=== PATIENT | female | born 1995 | race Caucasian/White ===

== ENCOUNTER 2017-03-01 15:57 | Emergency (ER) | payer MEDICAID ==
[~2017-03-01] VITALS: Ht 160 cm; Wt 99.0 kg
[~2017-03-01 15:57] MED LIST: AUGM875T PO; IBUP800T23 PO; PNVPAK PO
[2017-03-01 15:59] VITALS: BP 152/63; PULSE 86; RESP 14; TEMP 98.7; O2SAT 97
[2017-03-01] MEDS ORDERED: [UNRECOGNIZED DRUG - OTHER] PO (16:46)
--- NOTE | 2017-03-01 17:12 | PD ---
HPI Chief Complaint: Complaint Time Seen by Provider: 17:03 Travel History International Travel<30 days: No Contact w/Intl Traveler<30days: No Traveled to known affect area: No History of Present Illness HPI 21-year-old female presents to the emergency Department with complaint of dysuria 5 days. She also reports urgency and frequency. Denies hematuria. Currently on her menses. Denies vaginal discharge, odor, itch, lesions. Denies fever, chills, nausea, vomiting, abdominal pain. Denies low back pain. Has not taken any medications or tried any treatments to alleviate her symptoms. No known relieving or aggravating factors. Allergies to coconuts. Currently takes control. Denies significant past medical history. No other modifying factors or associated signs and symptoms. PFSH Past Medical History ADHD: No Cancer: No Cardiovascular Problems: No Diabetes: No Psychiatric: Yes (DEPRESSION) Migraines: No Seizures: No Thyroid Disease: No Ulcer: No ?: Not : 1 Para: 1 Past Surgical History Other Surgery: No Social History Alcohol Use: No Tobacco Use: No Substance Use: No Allergies-Medications (Allergen,Severity, Reaction): Coded Allergies: Coconut (Unverified Allergy, Intermediate, THROAT ITCHES, 03/01/17) Reported Meds & Prescriptions Reported Meds & Active Scripts Active Reported [jovelin] 1 Tab PO DAILY Review of Systems Except as stated in HPI: all other systems reviewed are Neg Physical Exam Narrative GENERAL: Well-nourished, well-developed -[place]onese female patient, in no acute distress; afebrile, nontoxic-appearing SKIN: Warm and dry. No rash. HEAD: Atraumatic. Normocephalic. EYES: Pupils equal and round. No scleral icterus. No injection or drainage. ENT: Mucosa pink and moist. NECK: Trachea midline. CARDIOVASCULAR: Regular rate and rhythm. No murmur appreciated. RESPIRATORY: No accessory muscle use. Clear to auscultation. Breath sounds equal bilaterally. GASTROINTESTINAL: Abdomen soft, non-tender, nondistended. Hepatic and splenic margins not palpable. Bowel sounds are active 4 quadrants. Bladder nontender and nondistended. MUSCULOSKELETAL: No obvious deformities. No clubbing. No cyanosis. No edema. BACK: No CVA tenderness NEUROLOGICAL: Awake and alert. Oriented 3. No obvious cranial nerve deficits. Motor grossly within normal limits. Normal speech. Moves all extremities. 5/5 strength to all extremities. PSYCHIATRIC: Appropriate mood and affect; insight and judgment normal. Data Data Last Documented VS Vital Signs Date Time Temp Pulse Resp B/P Pulse Ox O2 Delivery O2 Flow Rate FiO2 03/01/17 15:59 98.7 86 14 152/63 97 Orders Urinalysis - C+S If Indicated (03/01/17 16:10) Urine Culture (03/01/17 16:15) Labs Laboratory Tests Test 03/01/17 16:15 Urine Color YELLOW Urine Turbidity HAZY Urine pH 6.5 Urine Specific [place] 1.023 Urine Protein 30 mg/dL Urine Glucose (UA) NEG mg/dL Urine Ketones NEG mg/dL Urine Occult Blood LARGE Urine Nitrite NEG Urine Bilirubin NEG Urine Urobilinogen LESS THAN 2.0 MG/DL Urine Leukocyte Esterase SMALL Urine RBC /hpf Urine WBC 22 /hpf Urine Squamous Epithelial 5 /hpf Cells Urine Amorphous Sediment RARE Urine Bacteria FEW /hpf Urine Mucus FEW /lpf Microscopic Urinalysis Comment CULTURE INDICATED MDM Medical Decision Making Medical Screen Exam Complete: Yes Emergency Medical Condition: Yes Medical Record Reviewed: Yes Differential Diagnosis Cystitis, UTI, pyelonephritis Narrative Course 21-year-old female with dysuria 5 days. Patient is afebrile and nontoxic- appearing. Denies vaginal symptoms. Denies fever, chills, nausea, vomiting. Urinalysis ordered. 1720: Urinalysis was signs of infection. Keflex and Pyridium prescribed for home. Patient verbalizes understanding and agreement with treatment plan. Patient is medically cleared and stable for discharge. Discussed reasons to return to the emergency department. Instructed patient to follow up with primary care provider. Patient agrees with treatment plan. The patients vital signs are stable and the patient is stable for outpatient follow-up and treatment. Patient discharged home, stable and in no acute distress. Diagnosis Primary Impression: UTI (urinary tract infection) Qualified Code: N39.0 - Urinary tract infection without hematuria, site unspecified Referrals: Primary Care Physician Patient Instructions: General Instructions, Urinary Tract Infection in Women ( ED) Departure Forms: School Release, Return to School Date: Mar 02, 2017 Tests/Procedures Additional Instructions: Take antibiotics as prescribed and complete full course Take Pyridium for bladder spasms: Pyridium will turn your urine bright orange Drink plenty of fluids Maintain good personal hygiene Follow-up with primary care provider Return to the emergency department immediately with worsening of symptoms Med/Other Pt SpecificInfo: Prescription(s) given Scripts Phenazopyridine (Pyridium)100 Mg [id number] Mg PO Q8H PRN (DYSURIA) #10 TAB Ref 0 Prov:Melina Rae 03/01/17 Cephalexin (Keflex)500 Mg [id number] Mg PO Q12H 7 Days Ref 0 Prov:Melina Rae 03/01/17 Disposition: 01 DISCHARGE HOME Condition: Stable Melina Rae Mar 01, 2017 17:12
[2017-03-01 17:16] LABS: BACTERIA, URINE FEW /hpf; BLOOD, URINE LARGE (NEG); COMMENT (UR) CULTURE INDICATED; CULTURE IF INDICATED CULTURE INDICATED; GLUCOSE,URINE NEG (NEG); KETONE, URINE NEG (NEG); MUCUS URINE FEW /lpf (OCC); NITRITE,URINE NEG (NEG); PH, URINE 6.5 (5.0-8.5); SQUAMOUS EPITHELIAL CELL URINE 5 /hpf (0-5); URINE COLOR YELLOW (YELLW/STRAW)
[2017-03-01] MEDS ORDERED: CEPH-460 PO (17:21)
[2017-03-01] MEDS ORDERED: PHEN0.4T PO (17:21)
== END 2017-03-01 17:36 | disposition home or self-care (01) ==
LOC: NEPK 15:57
DX: N39.0 Urinary tract infection, site not specified (principal); B96.20 Unspecified Escherichia coli [E. coli] as the cause of diseases classified elsewhere
CPT/HCPCS: 81001; 87077; 87086; 87186; 99283

== ENCOUNTER 2017-03-31 13:51 | Emergency (ER) | payer MEDICAID ==
[~2017-03-31] VITALS: Ht 160 cm; Wt 100.0 kg
[~2017-03-31 13:51] MED LIST changes: -AUGM875T PO; +CEPH-460 PO; -IBUP800T23 PO; +PHEN0.4T PO; -PNVPAK PO; +[UNRECOGNIZED DRUG - OTHER] PO
[2017-03-31 13:52] VITALS: BP 130/73; PULSE 96; RESP 18; TEMP 98.8; O2SAT 97
--- NOTE | 2017-03-31 14:06 | PD ---
Physical Exam Date Seen by Provider: March 31, 2017 Time Seen by Provider: 14:04 Narrative 21 year old female presents to the emergency department for evaluation of pelvic pain, low back pain, vaginal d/c. She states she was recently treated for Chlamydia. She states her told her he was treated as well. They recently had sex and symptoms started again (same as last time she was diagnosed with chlamydia). She states her admitted that he was never treated. Vital signs reviewed. Patient awaiting bed placement. Data Data Last Documented VS Vital Signs Date Time Temp Pulse Resp B/P Pulse Ox O2 Delivery O2 Flow Rate FiO2 03/31/17 13:52 98.8 96 18 130/73 97 Room Air [facility] Supervised Visit with XIMENA: Catrachita Dorsey March 31, 2017 14:06
--- NOTE | 2017-03-31 15:03 | PD ---
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 Symptom onset 2 weeks ago. Green in color. She endorses slight dysuria, burning in nature, as well as mild discomfort in her lower abdomen and back. She reports that 2 weeks ago she was treated at the health department for chlamydia. She then had intercourse with her under the impression that her had already been treated as well. She was informed today that he was not treated and therefore she is concerned that she has a recurrent STD as etiology for her symptoms. Denies any nausea, vomiting, flank pain, fevers or chills. Last menstrual period unknown. No other complaints. PFSH Past Medical History ADHD: No Cancer: No Cardiovascular Problems: No Diabetes: No Psychiatric: Yes (DEPRESSION) Migraines: No Seizures: No Thyroid Disease: No Ulcer: No ?: Not : 1 Para: 1 Past Surgical History Other Surgery: No Social History Alcohol Use: No Tobacco Use: No Substance Use: No Allergies-Medications (Allergen,Severity, Reaction): Coded Allergies: Coconut (Unverified Allergy, Intermediate, THROAT ITCHES, 03/01/17) Reported Meds & Prescriptions Reported Meds & Active Scripts Active Macrobid (Nitrofurantoin Monoh/Nitrofur Macro) 100 Mg Cap 100 Mg PO BID 7 Days Reported [ control] DAILY Review of Systems General / Constitutional: No: Fever, Chills Gastrointestinal: Positive: Abdominal Pain, No: Nausea, Vomiting, Diarrhea Genitourinary: Positive: Dysuria Physical Exam Narrative GENERAL: Well-developed well-nourished female in no acute distress SKIN: Warm and dry. HEAD: Atraumatic. Normocephalic. EYES: Pupils equal and round. No scleral icterus. No injection or drainage. ENT: No nasal bleeding or discharge. Mucous membranes pink and moist. NECK: Trachea midline. No JVD. CARDIOVASCULAR: Regular rate and rhythm. No murmur appreciated. RESPIRATORY: No accessory muscle use. Clear to auscultation. Breath sounds equal bilaterally. GASTROINTESTINAL: Abdomen soft, minimal suprapubic tenderness without guarding. No CVA tenderness. Pelvic EXAMINATION performed in the presence of a female nurse: Yellow discharge noted in the vaginal canal, no cervical motion tenderness, no adnexal tenderness. MUSCULOSKELETAL: No obvious deformities. NEUROLOGICAL: Awake and alert. No obvious cranial nerve deficits. Motor grossly within normal limits. Normal speech. Data Data Last Documented VS Vital Signs Date Time Temp Pulse Resp B/P Pulse Ox O2 Delivery O2 Flow Rate FiO2 03/31/17 13:52 98.8 96 18 130/73 97 Room Air Orders Gc And Chlamydia Pcr (03/31/17 15:00) Wet Prep Profile (03/31/17 15:00) Urinalysis - C+S If Indicated (03/31/17 15:00) Ed Urine Pregnancytest Poc (03/31/17 15:00) Urine Culture (03/31/17 15:25) Azithromycin Powd Pack (Zithromax Powd P (03/31/17 16:15) Ceftriaxone Inj (Rocephin Inj) (03/31/17 16:15) Lidocaine 1% Inj (50 Ml) (Xylocaine 1% I (03/31/17 16:15) Labs Laboratory Tests Test 03/31/17 03/31/17 15:25 15:30 Urine Color YELLOW Urine Turbidity HAZY Urine pH 6.5 Urine Specific [place] 1.030 Urine Protein TRACE mg/dL Urine Glucose (UA) NEG mg/dL Urine Ketones NEG mg/dL Urine Occult Blood NEG Urine Nitrite NEG Urine Bilirubin NEG Urine Urobilinogen LESS THAN 2.0 MG/DL Urine Leukocyte Esterase LARGE Urine RBC 2 /hpf Urine WBC 30 /hpf Urine Squamous Epithelial 13 /hpf Cells Urine Bacteria MOD /hpf Urine Mucus FEW /lpf Microscopic Urinalysis Comment CULTURE INDICATED Clue Cells (Wet Prep) NONE SEEN Vaginal Trichomonas (Wet Prep) NONE SEEN Vaginal Yeast (Wet Prep) NONE SEEN MDM Medical Decision Making Medical Screen Exam Complete: Yes Emergency Medical Condition: Yes Medical Record Reviewed: Yes Differential Diagnosis Cervicitis, PID, tubal ovarian abscess, cystitis, intrauterine , vaginosis Narrative Course 21-year-old female with vaginal discharge, slight dysuria, mild lower abdominal pain, concern for recurrent chlamydial infection as she was recently treated at the health department but her has informed her that he was not treated. Pelvic examination was performed. Wet prep is negative. Chlamydia and gonorrhea are pending at the time of discharge. She was given empirically azithromycin and Rocephin here in the ED. Urinalysis reveals large leukocytes, bacteria consistent with urinary tract infection. Treating with Macrobid pending urine culture results. Stable for discharge. Diagnosis Primary Impression: UTI (urinary tract infection) Qualified Code: N30.00 - Acute cystitis without hematuria Additional Impression: Vaginal discharge Additional Instructions: Medication as prescribed. Have all partners tested and treated at the health department or primary care office prior to engaging in additional sexual activity. Return for any emergent medical conditions. Med/Other Pt SpecificInfo: Prescription(s) given Scripts Nitrofurantoin Monohydrate Macrocrystals (Macrobid)100 Mg [id number] Mg PO BID 7 Days Ref 0 Prov:Jimmy Stevens MD 03/31/17 Disposition: 01 DISCHARGE HOME Condition: Stable Seb Fuchs March 31, 2017 15:03
[2017-03-31] MEDS ORDERED: birth control (15:53)
[2017-03-31 16:06] LABS: BACTERIA, URINE MOD /hpf; BLOOD, URINE NEG (NEG); COMMENT (UR) CULTURE INDICATED; CULTURE IF INDICATED CULTURE INDICATED; GLUCOSE,URINE NEG (NEG); KETONE, URINE NEG (NEG); MUCUS URINE FEW /lpf (OCC); NITRITE,URINE NEG (NEG); PH, URINE 6.5 (5.0-8.5); SQUAMOUS EPITHELIAL CELL URINE 13 /hpf (0-5); URINE COLOR YELLOW (YELLW/STRAW)
[2017-03-31] MEDS ORDERED: MACR100C2 PO (16:14)
[2017-03-31] MEDS ORDERED: AZITHROMYCIN PWD FOR SUSP 1 GM PACKET PO ONE (16:15)
[2017-03-31] MEDS ORDERED: LIDOCAINE HCL 1% 50 ML VIAL IM ONE (16:15)
[2017-03-31] MEDS ORDERED: cefTRIAXone 250 MG VIAL IM ONE (16:15)
[2017-03-31 17:53] LABS: CHLAMYDIA PCR DETECTED (NOT DETECT); NEISSERIA PCR NOT DETECTED (NOT DETECT)
== END 2017-03-31 17:07 | disposition home or self-care (01) ==
LOC: NEPD 13:51
DX: N39.0 Urinary tract infection, site not specified (principal); N89.8 Other specified noninflammatory disorders of vagina; R30.0 Dysuria
CPT/HCPCS: 81001; 84703; 87086; 87210; 87491; 87591; 96372; 99283; J0696